=== PATIENT | female | born 1965 ===

== ENCOUNTER 2019-03-16 05:41 | Inpatient (IN) | payer MEDICARE, OTHER ==
[2019-03-15 14:03] LABS: EOSINOPHILS % (AUTO) 0.7 % (0.0-3.0); HEMATOCRIT 38.2 % (37.0-47.0); HEMOGLOBIN 12.8 G/DL (12.0-16.0); LYMPHOCYTES % (AUTO) 34.5 % (20.0-45.0); MEAN CORPUSCULAR VOLUME 93 FL (80-99); MONOCYTES % (AUTO) 7.4 % (1.0-10.0); NEUTROPHILS % (AUTO) 56.4 % (45.0-75.0); PLATELET COUNT 283 K/UL (150-450); RED BLOOD COUNT 4.11 M/UL (4.20-5.40); RED CELL DISTRIBUTION WIDTH 11.7 % (11.6-14.8); WHITE BLOOD COUNT 6.2 K/UL (4.8-10.8)
[2019-03-15 14:06] LABS: APPEARANCE,URINE CLEAR; BILIRUBIN, URINE NEGATIVE (NEGATIVE); COLOR,URINE PALE YELLOW; GLUCOSE, URINE (UA) NEGATIVE (NEGATIVE); KETONES,URINE NEGATIVE (NEGATIVE); LEUKOCYTE ESTERASE ,URINE NEGATIVE (NEGATIVE); NITRITE,URINE NEGATIVE (NEGATIVE); PH,URINE 6 (4.5-8.0); PROTEIN,URINE NEGATIVE (NEGATIVE); UROBILINOGEN,URINE NORMAL MG/DL (0.0-1.0)
[2019-03-15 14:13] LABS: ANION GAP 11 mmol/L (5-15); BLOOD UREA NITROGEN 17 mg/dL (7-18); CALCIUM 9.9 MG/DL (8.5-10.1); CARBON DIOXIDE 28 MMOL/L (21-32); CHLORIDE 102 MMOL/L (98-107); CREATININE 0.7 MG/DL (0.55-1.30); POTASSIUM 3.8 MMOL/L (3.5-5.1); SODIUM 141 MMOL/L (136-145)
--- NOTE | 2019-03-15 16:25 | Diagnostic Imaging Report ---
Indication: Cough Technique: 2 views of the chest Comparison: None Findings: Lungs and pleural spaces are clear. The heart size is normal. The bones are unremarkable. No significant interim change. Impression: Negative
[2019-03-16] VITALS (15 sets, daily range): BP systolic 94–117; BP diastolic 50–68
[~2019-03-16] VITALS: Ht 160 cm; Wt 58.1 kg
[~2019-03-16 05:41] MED LIST: ATORVASTATIN CA20 MG ORAL; LEVOTHYROXINE25 MCG ORAL; LOSARTAN POTASS25 MG ORAL; MELATONIN 3 MG1 EAC1 PO; METFORMIN HCL500 M1 ORAL; VITAMIN D400 INTLU ORAL
[2019-03-16] MEDS ORDERED: ceFAZolin sod 1 GM in NS 55 ML IVPB ONE (07:00)
[2019-03-16] MEDS ORDERED: Lidocaine 1% MPF 10mg/ml 5ml ONE (07:11)
[2019-03-16] MEDS ORDERED: MYRBETRIQ50 MG PO (07:11)
[2019-03-16] MEDS ORDERED: Propofol 200mg/20ml IV ONE (07:11)
[2019-03-16] MEDS ORDERED: [UNRECOGNIZED DRUG - REMARK] (07:11)
[2019-03-16] MEDS ORDERED: SV SALMON OIL1 EACH PO (07:11)
[2019-03-16] MEDS ORDERED: fentaNYL 100 mcg/2 mL IV ONE (07:11)
[2019-03-16] MEDS ORDERED: MILK THISTLE500 MG PO (07:11)
[2019-03-16] MEDS ORDERED: MAGNESIUM500 MG PO (07:11)
[2019-03-16] MEDS ORDERED: Midazolam 2mg/2ml Inj ONE (07:12)
[2019-03-16] MEDS ORDERED: Rocuronium Bromide 50mg/5ml Inj IV ONE (07:24)
[2019-03-16] MEDS ORDERED: Succinylcholine 20mg/ml 10ml vial ONE (07:24)
[2019-03-16] MEDS ORDERED: Bupivacaine w/Epi 0.5% 30ml Vial INJ ONE (07:28)
[2019-03-16] MEDS ORDERED: NeoSporin Gu Irrig 1ml Amp IRRIG ONE (07:28)
[2019-03-16] MEDS ORDERED: Bacitracin 50000 Units Vial ONE (07:28)
--- NOTE | 2019-03-16 07:37 | Anethesia Preoperative Eval ---
Anesthesia Pre-op PMH/ROS General Date of Evaluation: Mar 16, 2019 Time of Evaluation: 07:25 Anesthesiologist: Bernice Ku CRNA ASA Score: ASA 2 Mallampati Score Class I : Soft palate, uvula, fauces, pillars visible Class II: Soft palate, uvula, fauces visible Class III: Soft palate, base of uvula visible Class IV: Only hard plate visible Mallampati Classification: Class II Surgeon: Nely Diagnosis: Rectocele, incontinence Surgical Procedure: resctocele repair, colpo suspension, cystoscopy Family History: no anesthesia problems Allergies: Coded Allergies: No Known Allergies (Unverified , 02/19/16) Medications: see eMAR Patient NPO?: Yes NPO Date: Mar 16, 2019 NPO Time: 00:00 Past Medical History Cardiovascular: Reports: HTN, other - hypercholesterolemia; Denies: CAD, [place], valve dz, arrhythmia Pulmonary: Denies: asthma, COPD, MONICA, other Gastrointestinal/Genitourinary: Reports: GERD; Denies: CRI, ESRD, other Neurologic/Psychiatric: Denies: dementia, CVA, depression/anxiety, TIA, other Endocrine: Denies: DM, hypothyroidism, steroids, other HEENT: Denies: cataract (L), cataract (R), glaucoma, [place] (L), [place] (R), other Hematology/Immune: Denies: anemia, DVT, bleeding disorder, other Musculoskeletal/Integumentary: Reports: OA; Denies: RA, DJD, DDD, edema, other PMH Narrative: as noted above PSxH Narrative: vaginal prolapse repair, RIGHT shoulder surgery Anesthesia Pre-op Phys. Exam Physician Exam Last Vital Signs Date Time Temp Pulse Resp B/P (MAP) Pulse Ox O2 Delivery O2 Flow Rate FiO2 03/16/19 07:21 97.4 58 20 106/58 97 Room Air Constitutional: NAD Neurologic: other - alert & oreinted Cardiovascular: RRR Respiratory: CTA Gastrointestinal: S/NT/ND Airway Exam Mallampati Score: Class I MO: full Neck: FROM TMD: > 3 FB ROM: full Teeth: intact Dentures: no upper, no lower Anesthesia Pre-op A/P Labs Hematology Test 03/15/19 13:50 White Blood Count 6.2 K/UL (4.8-10.8) Red Blood Count 4.11 M/UL (4.20-5.40) L Hemoglobin 12.8 G/DL (12.0-16.0) Hematocrit 38.2 % (37.0-47.0) Mean Corpuscular Volume 93 FL (80-99) Mean Corpuscular Hemoglobin 31.1 PG (27.0-31.0) H Mean Corpuscular Hemoglobin Concent 33.4 G/DL (32.0-36.0) Red Cell Distribution Width 11.7 % (11.6-14.8) Platelet Count 283 K/UL (150-450) Mean Platelet Volume 6.1 FL (6.5-10.1) L Neutrophils (%) (Auto) 56.4 % (45.0-75.0) Lymphocytes (%) (Auto) 34.5 % (20.0-45.0) Monocytes (%) (Auto) 7.4 % (1.0-10.0) Eosinophils (%) (Auto) 0.7 % (0.0-3.0) Basophils (%) (Auto) 1.0 % (0.0-2.0) Coagulation Test 03/15/19 13:50 Prothrombin Time 10.5 SEC (9.30-11.50) Prothromb Time International Ratio 1.0 (0.9-1.1) Activated Partial Thromboplast Time 27 SEC (23-33) Chemistry Test 03/15/19 13:50 Sodium Level 141 MMOL/L (136-145) Potassium Level 3.8 MMOL/L (3.5-5.1) Chloride Level 102 MMOL/L (98-107) Carbon Dioxide Level 28 MMOL/L (21-32) Anion Gap 11 mmol/L (5-15) Blood Urea Nitrogen 17 mg/dL (7-18) Creatinine 0.7 MG/DL (0.55-1.30) Estimat Glomerular Filtration Rate > 60 mL/min (>60) Glucose Level 101 MG/DL (74-106) Calcium Level 9.9 MG/DL (8.5-10.1) Studies Pre-op Studies: EKG - SR, 1st degre AV block, CXR - WNL Risk Assessment & Plan Assessment: ASA 2, ok to proceed Plan: GETA Status Change Before Surgery: No Pre-Antibiotics Drug: Bernice Massey CRNA Mar 16, 2019 07:37
[2019-03-16] MEDS ORDERED: ProvayBlue 5mg/ml 10ml amp INJ ONE (07:45)
[2019-03-16] MEDS ORDERED: Sterile Water For Irrig 2000ml IRRIG ONE (08:00)
[2019-03-16] MEDS ORDERED: Neostigmine 1mg/ml 10ml Inj ONE (08:00)
[2019-03-16] MEDS ORDERED: NS Irrig 1000ml ONE (08:00)
[2019-03-16] MEDS ORDERED: Glycopyrrolate 0.2mg/ml 1ml Vial ONE (08:00)
[2019-03-16] MEDS ORDERED: Gelatin Sponge,Absorbable Syr TP ONE (08:00)
[2019-03-16] MEDS ORDERED: LR 1000ml ONE (08:00)
[2019-03-16] MEDS ORDERED: Sterile Water Irrig 1000ml IRRIG ONE (08:00)
[2019-03-16] MEDS ORDERED: Thrombin 5000 units spray kit TOPIC ONE (08:02)
--- NOTE | 2019-03-16 08:03 | Pre-Procedure Note/Attestation ---
Pre-Procedure Note/Attestation Complete Prior to Procedure Planned Procedure: not applicable Procedure Narrative: cystocele rectocele repair vaginal sling cystoscopy Indications for Procedure Pre-Operative Diagnosis: vaginal prolapse Attestation I attest that I discussed the nature of the procedure; its benefits; risks and complications; and alternatives (and the risks and benefits of such alternatives ), prior to the procedure, with the patient (or the patient's legal truck sales representative). I attest that, if there was a reasonable possibility of needing a blood transfusion, the patient (or the patient's legal truck sales representative) was given the [facility] standardized written summary, pursuant to the Alex Jurgen Blood Safety Act ([place] Health and Safety Code # 1645, as amended). I attest that I re-evaluated the patient just prior to the surgery and that there has been no change in the patient's H&P, except as documented below: Philip Mckay MD Mar 16, 2019 08:03
[2019-03-16] MEDS ORDERED: Hydromorphone 0.5mg/0.5ml inj IVP PRN (09:00)
--- NOTE | 2019-03-16 09:08 | Immediate Post-Op Evaluation ---
Immediate Post-Op Evalulation Immediate Post-Op Evalulation Procedure: Rectocele repair, colposuspension, cystocopy Date of Evaluation: Mar 16, 2019 Time of Evaluation: 09:44 IV Fluids: LR 1100 ml Estimated Blood Loss: 50 ml Blood Pressure Systolic: 117 Blood Pressure Diastolic: 61 Pulse Rate: 84 Respiratory Rate: 22 O2 Sat by Pulse Oximetry: 100 Temperature (Fahrenheit): 97.6 Pain Score (1-10): 3 Nausea: No Vomiting: No Complications none Patient Status: awake, reacts, patent, extubated Hydration Status: adequate Drug: cefazolin 1 gm IV Given Within 1 Hr of Incision: Yes Time Given: 08:15 Bernice Ku CRNA Mar 16, 2019 09:08
[2019-03-16] MEDS ORDERED: Metoclopramide 10mg/2ml Inj ONE (09:18)
[2019-03-16] MEDS ORDERED: Dexamethasone 4mg/ml vial ONE (09:18)
--- NOTE | 2019-03-16 09:38 | Brief Operative Note ---
Immediate Post Operative Note Operative Note Pre-op Diagnosis: vaginal prolapse Procedure: cysto and rectocele repair colposuspension and cystoscopy Post-op Diagnosis: same Post-op Diagnosis: same as pre-op Surgeon: Tomi Mckay Anesthesia: general Specimen: none Complications: none Condition: stable Fluids: 500 Estimated Blood Loss: minimal Drains: none Implant(s) used?: No Philip Mckay MD Mar 16, 2019 09:38
[2019-03-16] MEDS ORDERED: HYDROmorphone 1mg/ml Carpuject IVP PRN (09:45)
[2019-03-16] MEDS ORDERED: Ketorolac 30mg Inj IV PRN (09:45)
[2019-03-16 10:59] LABS: BASOPHILS % (AUTO) 0.9 % (0.0-2.0); EOSINOPHILS % (AUTO) 0.8 % (0.0-3.0); HEMATOCRIT 34.6 % (37.0-47.0); HEMOGLOBIN 11.7 G/DL (12.0-16.0); LYMPHOCYTES % (AUTO) 27.4 % (20.0-45.0); MEAN CORPUSCULAR VOLUME 93 FL (80-99); MONOCYTES % (AUTO) 4.9 % (1.0-10.0); PLATELET COUNT 250 K/UL (150-450); RED BLOOD COUNT 3.74 M/UL (4.20-5.40); RED CELL DISTRIBUTION WIDTH 11.6 % (11.6-14.8); WHITE BLOOD COUNT 5.7 K/UL (4.8-10.8)
[2019-03-16 11:08] LABS: ANION GAP 7 mmol/L (5-15); BLOOD UREA NITROGEN 13 mg/dL (7-18); CALCIUM 8.8 MG/DL (8.5-10.1); CARBON DIOXIDE 28 MMOL/L (21-32); CHLORIDE 108 MMOL/L (98-107); CREATININE 0.6 MG/DL (0.55-1.30); SODIUM 143 MMOL/L (136-145)
--- NOTE | 2019-03-16 12:00 | NUR ---
NURSE NOTES: Patient arrived to unit at 1110 via gurney, accompanied by Shira GARDNER (PACU). Patient is awake and oriented, on 3L NC. No acute distress noted, reporting no pain at this time. Brooks to gravity drainage with clear, yellow urine noted. Kathleen pad in place with vaginal packing. SCD's in place. IV intact, patent. Patient oriented to room, updated on plan of care for the day. Side rails upx3, bed low and locked, call light in reach. Will continue to monitor.
[2019-03-16] MEDS: D5 1/2NS w/KCl 20mEq 1,000 ML IV SCH ×2 (12:33→21:20)
[2019-03-16] MEDS ORDERED: MELATONIN5 M5 ORAL (14:49)
--- NOTE | 2019-03-16 15:45 | Pre-op HX & Phy Repo 2 SIG ---
DATE OF ADMISSION: 03/16/2019 PRESURGICAL INTERNAL MEDICINE HISTORY AND PHYSICAL REASON FOR EVALUATION: I was asked by Dr. Phliip Mckay to see this 53-year-old female, who going for elective surgery in the rectum and bladder. The patient was evaluated. Chart was reviewed at [facility] outpatient procedure department. PAST MEDICAL HISTORY/REVIEW OF SYSTEMS: Remarkable for hypertension. Denies history of chest pain, palpitation, or heart attack. No history of stroke or seizures. Denies history of thyroid problem or diabetes. No history of anemia or renal failure. The patient has history of osteoarthritis. No osteoporosis. PAST SURGICAL HISTORY: Bladder surgery and right shoulder surgery. FAMILY HISTORY: Both parents . Father had a heart attack and history of liver cirrhosis. Mother has liver cirrhosis. ALLERGIES: Not known. PRESENT MEDICATIONS: Include losartan 25 mg daily, vitamin D3 5000 weekly, magnesium 500 mg, [place]-3, Myrbetriq 50 mg daily, melatonin 0.5 mg, milk thistle. HABITS: Denies history of smoke or alcohol habits. No street drugs. PHYSICAL EXAMINATION: GENERAL: Alert, well-developed and well-nourished female in her 50s, no acute distress. VITAL SIGNS: Blood pressure 106/58, temperature 97.4, pulse 58 and regular, respirations 20, and O2 saturation 97% on room air. SKIN: Clear and warm. LYMPH NODES: Not enlarged. No rashes. No ulcers. HEENT: Head normocephalic, atraumatic. Ears, clear. No discharge. Eyes, muscles intact. No jaundice or conjunctivitis. Mouth, clear and moist. No dentures. NECK: Trachea midline. Supple. No thyroid gland enlargement or nodes. CHEST: No deformity or asymmetry. LUNGS: Clear to auscultation percussion. No rales or rhonchi. HEART: Sinus rhythm. No ectopy. No murmur. No S3, S4. ABDOMEN: Soft, benign. Liver and spleen not enlarged. No rebound. EXTREMITIES: No peripheral edema. Scar on the right shoulder. No calf tenderness. No varicose vein. GENITOURINARY: Dysuria. No CVA tenderness. Full description per Dr. Philip Mckay. NERVOUS SYSTEM: No tremor. No nystagmus. LABORATORY AND DIAGNOSTIC DATA: Electrocardiogram, sinus rhythm, first-degree AV block. Left axis deviation. Laboratory pending. The patient did not eat or drink from 04 p.m. last night. IMPRESSION: 1. Rectocele and incontinence. 2. Hypertension, controlled. 3. Osteoporosis and osteoarthritis. PLAN: Rectocele repair, colposuspension, and cystoscopy as per Dr. Philip Mckay. CONCLUSION: The patient's has history of hypertension, EKG changes, no heart attack. No diabetes. The patient's did not eat from 4 p.m. yesterday. The patient's condition optimized for surgery. Thank you very much, Dr. Mckay, for privilege to participate in presurgical care of this interesting patient. Suad Carcamo M.D. DR: Raheem JOB#: [id number] CC:
--- NOTE | 2019-03-16 16:30 | Operative Note - Dictated ---
DATE OF OPERATION: 03/16/2019 PREOPERATIVE DIAGNOSES: Vaginal prolapse, rectocele, cystocele. POSTOPERATIVE DIAGNOSES: Vaginal prolapse, rectocele, cystocele. OPERATION: Transvaginal rectocele and cystocele repair, colposuspension, cystoscopy. OPERATED BY: Philip Mckay M.D. ANESTHESIA: General. FINDINGS: vaginal wall with rectocele and moderate cystocele. INDICATIONS FOR SURGERY: The patient had previously cystocele repair and vaginal sling. She is not complaining of any voiding symptoms. However noticed a bulge in the vagina, which was confirmed as large rectocele and vaginal wall prolapse. Treatment options were explained to her in great length. She understands the above procedure as well as all potential complications. She signed a consent. DESCRIPTION OF PROCEDURE: She was brought to the operating room, placed in lithotomy position, prepped and draped in standard fashion. Under general anesthesia, bilateral perirectal incision was made and rectal mucosa was from the vaginal wall using blunt and sharp dissection. After that, enterocele was entered and 2 sutures were placed in the sacral spinal muscle on both sides and brought outside through the opening of the vagina. Rectocele and cystocele was reduced and closed with a running 2-0 Vicryl suture putting suture through the wall and connecting it to the sacral spinal ligament allowed us to bring the vaginal wall much cephalad establishing good vaginal canal. Vagina was then further closed tight. Enterocele was repaired. Cystoscopy was normal. The patient tolerated the procedure well. Vaginal packing. She received preoperative antibiotics. Sponge count, instrument count was correct. Philip Mckay M.D. DR: KATHE JOB#: [id number] CC:
[2019-03-16] MEDS: ceFAZolin sod 2 GM in D5W 110 ML IV SCH (16:32)
[2019-03-16] MEDS: HYDROcodone/Acetamin 5/325 tab ORAL PRN ×2 (16:33→21:21)
--- NOTE | 2019-03-16 16:50 | NUR ---
NURSE NOTES: Called the office of Dr. Mendiola and left voicemail for MD regarding orders for patient's home medications. Awaiting callback.
--- NOTE | 2019-03-16 16:54 | NUR ---
NURSE NOTES: Received call back from Dr. Mendiola. gave order to start patient's home medication Losartan tomorrow in AM. Order read back and entered.
[2019-03-16] MEDS: Docusate 100mg cap ORAL SCH (17:53)
--- NOTE | 2019-03-16 19:22 | NUR ---
HAND-OFF: Report given to Timothy GARDNER.
--- NOTE | 2019-03-16 19:45 | NUR ---
NURSE NOTES: Received report from JJ Adams. Patient is resting comfortably alert and oriented x4, family at bedside. No c/o of SOB on room air, c/o pain 6/10 will give meds per eMAR order. Brooks is draining urine to gravity bag. Right arm IV is intact running fluids. Will continue to monitor.
[2019-03-17] VITALS (7 sets, daily range): BP systolic 90–124; BP diastolic 51–65
[2019-03-17] MEDS: ceFAZolin sod 2 GM in D5W 110 ML IV SCH (00:04)
[2019-03-17] MEDS: HYDROcodone/Acetamin 5/325 tab ORAL PRN ×3 (06:13→20:36)
[2019-03-17 06:29] LABS: BASOPHILS % (AUTO) 0.4 % (0.0-2.0); EOSINOPHILS % (AUTO) 0.1 % (0.0-3.0); HEMATOCRIT 34.6 % (37.0-47.0); HEMOGLOBIN 11.8 G/DL (12.0-16.0); LYMPHOCYTES % (AUTO) 25.3 % (20.0-45.0); MEAN CORPUSCULAR VOLUME 93 FL (80-99); MONOCYTES % (AUTO) 5.1 % (1.0-10.0); NEUTROPHILS % (AUTO) 69.1 % (45.0-75.0); PLATELET COUNT 256 K/UL (150-450); RED CELL DISTRIBUTION WIDTH 11.8 % (11.6-14.8); WHITE BLOOD COUNT 9.7 K/UL (4.8-10.8)
[2019-03-17 07:09] LABS: ANION GAP 8 mmol/L (5-15); BLOOD UREA NITROGEN 8 mg/dL (7-18); CARBON DIOXIDE 27 MMOL/L (21-32); CHLORIDE 107 MMOL/L (98-107); CREATININE 0.7 MG/DL (0.55-1.30); SODIUM 142 MMOL/L (136-145)
--- NOTE | 2019-03-17 07:41 | NUR ---
NURSE NOTES: Received report from Timothy GARDNER. Patient is awake and oriented, no acute distress noted, reporting mild pain at this time. Vaginal packing removed per order by restrike hammer operator nurse, pauly pad in place. IVF running per order. Brooks to gravity drainage with clear, yellow urine noted, order not to d/c noted, sign above bed. Patients needs met at this time. Updated on plan of care for the day. Side rails upx2, bed low and locked, call light in reach. Will continue to monitor.
--- NOTE | 2019-03-17 07:51 | NUR ---
HAND-OFF: Report given to Angie Espinoza RN. Patient in stable condition.
--- NOTE | 2019-03-17 08:06 | 48 Hour Post Anesthesia Eval ---
Post Anesthesia Evaluation Procedure: Rectocele repair, colposuspension, cystocopy Date of Evaluation: Mar 17, 2019 Time of Evaluation: 08:05 Blood Pressure Systolic: 116 0: 72 Pulse Rate: 68 Respiratory Rate: 20 Temperature (Fahrenheit): 97.8 O2 Sat by Pulse Oximetry: 98 Airway: patent Nausea: No Vomiting: No Pain Intensity: 3 Hydration Status: adequate Cardiopulmonary Status: stable Mental Status/LOC: patient returned to baseline Follow-up Care/Observations: n/a Post-Anesthesia Complications: none Follow-up care needed: ready to discharge Rickie Jon MD Mar 17, 2019 08:06
[2019-03-17] MEDS: Losartan 25mg tab ORAL SCH (08:46)
[2019-03-17] MEDS: Docusate 100mg cap ORAL SCH ×2 (08:46→18:05)
--- NOTE | 2019-03-17 10:56 | NUR ---
NURSE NOTES: Patient got OOB with RN assist. Ambulated in hallway steadily with walker. Up in chair now, medicated for pain per order. Will continue to monitor.
--- NOTE | 2019-03-17 11:05 | NUR ---
NURSE NOTES: Patient seen by Dr. Mendiola. Order received to enter admit inpatient order. Order entered.
--- NOTE | 2019-03-17 12:30 | NUR ---
NURSE NOTES: Spoke to regarding patient and new order received. Order read back and carried out.
--- NOTE | 2019-03-17 13:45 | NUR ---
NURSE NOTES: Brooks catheter removed per MD order. Patient tolerated well. Patient educated to inform RN when she is ready to void.
--- NOTE | 2019-03-17 14:36 | NUR ---
CASE MANAGEMENT:REVIEW 53 YR OLD FEMALE HERE FOR ELECTIVE SURGERY SI: VAGINAL PROLAPSE 98.1 62 16 113/59 97% ON RA IS: TO SURGERY: CYSTO AND RECTOCELE REPAIR : TO MED/SURG POST OP
--- NOTE | 2019-03-17 18:15 | NUR ---
NURSE NOTES: Patient voided without difficulty.
--- NOTE | 2019-03-17 19:20 | NUR ---
NURSE NOTES: Report taken from JJ Adams. Patient is awake and in bed, primarily kyrgyz speaking. A&Ox4. No signs of distress on room air. Minor complaints of pain through the abdominal area, 09/01. Patient voiding well post steele removal. IV site c/d/i, no fluids running per order. No skin issues present, patient ambulates without assist. Bed in lowest position, call light within reach.
--- NOTE | 2019-03-17 19:30 | NUR ---
HAND-OFF: Report given to Lobo GARDNER.
[2019-03-18] VITALS: BP 110/69
[2019-03-18] MEDS: HYDROcodone/Acetamin 5/325 tab ORAL PRN (06:45)
--- NOTE | 2019-03-18 07:15 | Pulmonology Progress Note ---
Assessment/Plan Assessment/Plan S/P cystoscopy and repair HTN PLAN Brooks dc Dc home today Subjective Interval Events: Brooks dc Constitutional: Reports: no symptoms HEENT: Repors: no symptoms Respiratory: Reports: no symptoms Cardiovascular: Reports: no symptoms Gastrointestinal/Abdominal: Reports: no symptoms Genitourinary: Reports: no symptoms Allergies: Coded Allergies: No Known Allergies (Unverified , 02/19/16) Objective Last 24 Hour Vital Signs Date Time Temp Pulse Resp B/P (MAP) Pulse Ox O2 Delivery O2 Flow Rate FiO2 03/18/19 00:00 98.1 61 17 110/69 (83) 97 03/17/19 21:00 Room Air 03/17/19 20:00 98.5 62 17 108/65 (79) 98 03/17/19 16:00 98.0 66 16 119/51 (73) 97 03/17/19 11:48 98.1 62 16 113/59 (77) 97 03/17/19 09:00 Room Air 03/17/19 08:46 124/64 03/17/19 08:06 68 20 98 03/17/19 08:00 98.0 66 17 124/64 (84) 95 Intake and Output 03/17/19 03/18/19 19:00 07:00 Intake Total 1400 ml Output Total 525 ml Balance 875 ml Intake Oral 1400 ml Output Urine Total 525 ml # Voids 2 General Appearance: no acute distress HEENT: normocephalic Respiratory/Chest: chest wall non-tender Cardiovascular: normal peripheral pulses Abdomen: normal bowel sounds, soft, non tender Microbiology Date/Time Source Procedure Growth Status 03/15/19 13:50 Urine,Clean Catch Urine Culture - Final Gram Positive Cocci Complete Current Medications Medications (Trade) Dose Ordered Sig/[place]lei Route PRN Reason Start Time Stop Time Status Last Admin Dose Admin Acetaminophen (Tylenol) 650 mg Q4H PRN ORAL FEVER 03/16/19 09:45 04/15/19 09:44 Acetaminophen (Tylenol) 650 mg Q6H PRN ORAL Mild Pain (Pain Scale 1-3) 03/16/19 09:45 04/15/19 09:44 Acetaminophen/ Hydrocodone Bitart ([place] 5/325) 1 tab Q4H PRN ORAL Moderate Pain (Pain Scale 4-6) 03/16/19 09:45 03/23/19 09:44 03/18/19 06:45 Docusate Sodium (Colace) 100 mg TWICE A DAY ORAL 03/16/19 18:00 04/15/19 17:59 03/17/19 18:05 Hydromorphone HCl (Dilaudid) 1 mg Q3H PRN IVP pain score 4-6 03/16/19 09:45 03/23/19 09:44 Ketorolac Tromethamine (Toradol 30mg) 15 mg Q6H PRN IV breakthrough pain 03/16/19 09:45 03/21/19 09:44 03/17/19 12:53 Losartan Potassium (Cozaar) 25 mg DAILY ORAL 03/17/19 09:00 04/16/19 08:59 03/17/19 08:46 Ondansetron HCl (Zofran) 4 mg Q6H PRN IVP Nausea & Vomiting 03/16/19 09:45 04/15/19 09:44 Temazepam (Restoril) 7.5 mg DAILYPRN PRN ORAL Insomnia 03/16/19 09:45 03/23/19 09:44 03/16/19 21:20 Murali Mendiola MD Mar 18, 2019 07:15
[2019-03-18] MEDS ORDERED: COLACE100 MG ORAL (07:18)
[2019-03-18] MEDS ORDERED: LEVOFLOXACIN500 MG ORAL (07:18)
[2019-03-18] MEDS ORDERED: NORCO 5-325 TA1 EACH ORAL (07:18)
--- NOTE | 2019-03-18 07:30 | NUR ---
NURSE NOTES: Received pt from GERSON GARDNER. Pt is alert and orient x4. pt is in RA, no SOB or acute respiratory distress noted. pt has intact iv access R wrist 20G SL. Pt is aware about discharging. pt is eating breakfast independently. All needs attended, bed is locked and is in the lowest position, call light within easy reach, will continue to monitor.
--- NOTE | 2019-03-18 07:44 | NUR ---
HAND-OFF: Report given to JJ Caldwell. Patient is awake and stable. Endorsed to day nurse Dr. Mendiola phone call. He called patients medications into her pharmacy and will be by to bring her one other perscritption before discharge.
[2019-03-18 08:00] VITALS: BP 112/60
[2019-03-18] MEDS: Docusate 100mg cap ORAL SCH (09:20)
[2019-03-18 09:21] VITALS: BP 112/60
[2019-03-18] MEDS: Losartan 25mg tab ORAL SCH (09:21)
--- NOTE | 2019-03-18 11:14 | NUR ---
NURSE NOTES: pt has discharge order, all D/C assessments and instructions done and pt verbally confirmed to understand all. pt is stable, V/S stable. norco prescription is with pt and she asked to take it to her pharmacy. pt has am little bit bleeding, Dr GONZALEZ visited pt and is aware, no new order to RN. All belongings are with pt and belongings list signed by pt. iv access D/C, Pt left hospital with accompany of her . pt refused to have wheelchair to leave unit.
--- NOTE | 2019-03-18 11:54 | Consultation ---
DATE OF CONSULTATION: 03/17/2019 INTERNAL MEDICINE CONSULTATION CONSULTING PHYSICIAN: Murali Mendiola M.D. HISTORY OF PRESENT ILLNESS: This is a 53-year-old female, who has undergone a rectocele repair, cystoscopy, and bladder suspension by Dr. Philip Mckay. She is doing well. Postoperative day #1. Denies any active medical problems. PAST HISTORY: Notable for hypertension, GERD, osteoarthrosis. PREVIOUS SURGERIES: Include vaginal prolapse repair and previous right shoulder surgery. HOME MEDICATIONS: Reviewed and reconciled in the chart. REVIEW OF SYSTEMS: Denies any headaches, hematemesis, melena, hematochezia, night sweats, or weight loss. PHYSICAL EXAMINATION: GENERAL: Reveals a 53-year-old female. HEENT: Unremarkable. LUNGS: Clear breath sounds bilaterally. HEART: Normal heart sounds. ABDOMEN: Soft. NEUROLOGIC: Nonfocal. VITAL SIGNS: Blood pressure is 120/60, heart rate 64, respirations 20, she is afebrile. LABORATORY DATA: Lab testing shows hemoglobin 11.8. Chemistry is normal. IMPRESSION: 1. Status post cystocele and rectocele repair and vaginal sling/cystoscopy postoperative day #1. 2. Hypertension. DISCUSSION: The patient is doing well postoperative day #1. At this point, she appears comfortable. We will advance diet. Discharge planning per Urology. Murali Mendiola M.D. DR: ROSS JOB#: [id number] CC:
--- NOTE | 2019-03-20 11:30 | NUR ---
CASE MANAGEMENT: CM review and clinical information (face sheet/ H&P/ DC summary/ operative report) faxed to [facility] @ [phone].
--- NOTE | 2019-03-20 11:49 | Discharge Summary ---
Discharge Summary Discharge Summary _ DATE OF ADMISSION: 03/16/2019 DATE OF DISCHARGE: 03/18/2019 DISCHARGED BY: Dr. River Mendiola CONSULTANTS: Dr. Philip Carcamo BRIEF HOSPITAL COURSE: Patient is a 53-year-old female, who was admitted for an elective surgery. Patient had a previous cystocele repair. Patient not complaining of any voiding symptoms, however, notices a bulge in the vagina, which was confirmed as a large rectocele and vaginal prolapse. She was admitted and underwent a transvaginal rectocele and cystocele repair, colposuspension, and cystoscopy by Dr. Mckay. She tolerated procedure well. Cystoscopy was normal. She was admitted for postop care. She was given IV hydration. She was given incentive spirometry. Vaginal packing was removed the following day. Brooks catheter was discontinued. She was eventually discharged home. FINAL DIAGNOSES: Vaginal prolapse, rectocele, cystocele. OPERATION: Transvaginal rectocele and cystocele repair, colposuspension, cystoscopy. DISPOSITION: Patient was discharged home. DISCHARGE MEDICATIONS: Refer to Discharge Medication List. DISCHARGE INSTRUCTIONS: Follow-up in a week. I have been assigned to complete a discharge summary on this account, I was not involved with the patient's management.--ZOILA Churchill Jacqueline Robles NP Mar 20, 2019 11:49
== END 2019-03-18 11:12 | disposition home or self-care (01) | DRG 748 ==
LOC: SUR 05:41 → 3E 10:21 → INTOOBSV 10:21 → OBSVTOIN 10:21
PROC: 0USG0ZZ Reposition Vagina, Open Approach (ICD-10-PCS; principal; 2019-03-16 07:30)
PROC: 0JQC0ZZ Repair Pelvic Region Subcutaneous Tissue and Fascia, Open Approach (ICD-10-PCS; principal; 2019-03-16 07:30)
DX: N81.10 Cystocele, unspecified (principal); N81.6 Rectocele; I10 Essential (primary) hypertension; K21.9 Gastro-esophageal reflux disease without esophagitis; M19.90 Unspecified osteoarthritis, unspecified site; R32 Unspecified urinary incontinence
CPT/HCPCS: 36415; 71046; 80048; 81001; 85025; 85610; 85730; 87086; 93005; 94003; 94150; J2250; J2405; J2710; J2765